=== PATIENT | male | born 1945 | race Caucasian/White ===

== ENCOUNTER 2017-02-17 19:53 | Inpatient (IN) | payer OTHER ==
[~2017-02-17] VITALS: Ht 185.4 cm; Wt 80.5 kg
[2017-02-17] MEDS ORDERED: LORTAB 7.5-3251 EACH PO (22:15)
[2017-02-17] MEDS ORDERED: AMLODIPINE BESY10 MG PO (22:16)
[2017-02-17] MEDS ORDERED: CLEOCIN HCL300 MG PO (22:16)
[2017-02-17] MEDS ORDERED: FUROSEMIDE20 MG PO (22:16)
[2017-02-17] MEDS ORDERED: FLOMAX 0.4 MG0.4 MG PO (22:17)
[2017-02-17] MEDS ORDERED: ZESTRIL 40 MG T40 MG PO (22:17)
[2017-02-17] MEDS ORDERED: TENORMIN 50 MG50 MG PO (22:18)
[2017-02-17] MEDS ORDERED: HUMALOG100 UNIT/1 SQ (22:19)
[2017-02-17] MEDS ORDERED: NEURONTIN 300300 MG PO (22:19)
[2017-02-17] MEDS ORDERED: LIPITOR TAB 2020 MG PO (22:19)
[2017-02-17] MEDS ORDERED: LANTUS100 UNIT/1 SQ (22:20)
[2017-02-17] MEDS ORDERED: NOVOLOG 10100 UNITS/ SQ (22:23)
[2017-02-18 05:58] LABS: HEMOGLOBIN 10.9 gm/dl (14.0-17.5); RED BLOOD COUNT 3.74 M/UL (4.20-5.50); WHITE BLOOD COUNT 8.9 K/UL (4.5-11.0)
[2017-02-18 06:28] LABS: BUN/CREATININE RATIO 18 (0-10)
[2017-02-19 05:02] LABS: HEMOGLOBIN 10.2 gm/dl (14.0-17.5); RED BLOOD COUNT 3.54 M/UL (4.20-5.50); WHITE BLOOD COUNT 9.2 K/UL (4.5-11.0)
[2017-02-19 05:20] LABS: BUN/CREATININE RATIO 26 (0-10)
[2017-02-20 04:46] LABS: HEMOGLOBIN 10.7 gm/dl (14.0-17.5); RED BLOOD COUNT 3.64 M/UL (4.20-5.50); WHITE BLOOD COUNT 10.5 K/UL (4.5-11.0)
[2017-02-21 06:12] LABS: HEMOGLOBIN 10.7 gm/dl (14.0-17.5); RED BLOOD COUNT 3.7 M/UL (4.20-5.50); WHITE BLOOD COUNT 8.6 K/UL (4.5-11.0)
[2017-02-21 06:49] LABS: BUN/CREATININE RATIO 16 (0-10)
[2017-02-22 19:07] LABS: HEMOGLOBIN 11.3 gm/dl (14.0-17.5); RED BLOOD COUNT 3.87 M/UL (4.20-5.50); WHITE BLOOD COUNT 9.7 K/UL (4.5-11.0)
[2017-02-22 19:29] LABS: BUN/CREATININE RATIO 16 (0-10)
[2017-02-22] MEDS ORDERED: BACTROBAN OINT22 GM TOP (22:18)
[2017-02-23 04:13] LABS: HEMOGLOBIN 10.9 gm/dl (14.0-17.5); RED BLOOD COUNT 3.64 M/UL (4.20-5.50); WHITE BLOOD COUNT 7.4 K/UL (4.5-11.0)
[2017-02-23 04:28] LABS: BUN/CREATININE RATIO 20 (0-10)
[2017-03-01 04:51] LABS: HEMOGLOBIN 10.2 gm/dl (14.0-17.5); RED BLOOD COUNT 3.59 M/UL (4.20-5.50); WHITE BLOOD COUNT 9.1 K/UL (4.5-11.0)
[2017-03-01 05:32] LABS: BUN/CREATININE RATIO 14 (0-10)
[2017-03-01] MEDS ORDERED: TEFLARO600 MG IV (18:30)
[2017-03-01] MEDS ORDERED: VITAMIN C 500500 MG PO (18:34)
[2017-03-01] MEDS ORDERED: DAKIN'S SOLUTI500 ML EXT (18:34)
[2017-03-01] MEDS ORDERED: PLAVIX 75 MG TA75 MG PO (18:35)
[2017-03-30] MEDS ORDERED: LABETALOL HCL200 MG PO (15:55)
[2017-03-30] MEDS ORDERED: NORVASC 5 MG TAB5 MG PO (15:56)
[2017-03-30] MEDS ORDERED: ASPIRIN EC81 MG PO (15:56)
[2017-03-30] MEDS ORDERED: LEVAQUIN I750 MG/150 IV (15:59)
[2017-03-30] MEDS ORDERED: VANCOCIN 125MG/2.5ML IV (15:59)
[2017-03-30] MEDS ORDERED: VITAMIN C 500500 MG PO (16:00)
[2017-03-30] MEDS ORDERED: NORCO 10-325 T1 EACH PO (16:01)
== END 2017-03-01 19:15 | disposition home or self-care (01) | DRG 271 ==
LOC: MED SURG 4 21:21
PROVIDERS: Internal Medicine; Internal Medicine Cardiovascular Disease; Physician Assistant; Podiatrist Foot & Ankle Surgery; ADMIT Internal Medicine
PROC: 0JBR0ZZ Excision of Left Foot Subcutaneous Tissue and Fascia, Open Approach (ICD-10-PCS; principal; 2017-02-19 08:00)
PROC: 0Y6S0Z0 Detachment at Left 2nd Toe, Complete, Open Approach (ICD-10-PCS; principal; 2017-02-19 08:00)
PROC: B41DYZZ Fluoroscopy of Aorta and Bilateral Lower Extremity Arteries using Other Contrast (ICD-10-PCS; 2017-02-22)
PROC: 04CN3ZZ Extirpation of Matter from Left Popliteal Artery, Percutaneous Approach (ICD-10-PCS; 2017-02-22)
DX: E11.52 Type 2 diabetes mellitus with diabetic peripheral angiopathy with gangrene (principal); M86.172 Other acute osteomyelitis, left ankle and foot; E87.1 Hypo-osmolality and hyponatremia; E11.69 Type 2 diabetes mellitus with other specified complication; I10 Essential (primary) hypertension; I25.10 Atherosclerotic heart disease of native coronary artery without angina pectoris; E11.42 Type 2 diabetes mellitus with diabetic polyneuropathy; E11.621 Type 2 diabetes mellitus with foot ulcer; L97.523 Non-pressure chronic ulcer of other part of left foot with necrosis of muscle; M10.9 Gout, unspecified; R04.0 Epistaxis; Z79.4 Long term (current) use of insulin; Z79.82 Long term (current) use of aspirin; Z95.1 Presence of aortocoronary bypass graft; Z88.0 Allergy status to penicillin; Z88.2 Allergy status to sulfonamides; Z87.891 Personal history of nicotine dependence
CPT/HCPCS: 36245; 36415; 73630; 75630; 80048; 80202; 82962; 83036; 85027; 85347; 85610; 85730; 86140; 87040; 87070; 87077; 87186; 87205; 93005; 93925; C1714; C1769; C2623; J1335; J1644; J1650; J2185; J2250; J2270; J2795; J3010; J3370; J7030; J7050; J7070; J7120; Q9965

== ENCOUNTER → 2017-03-14 | Outpatient (CLI) | payer OTHER ==
[~2017-03-14] MED LIST: AMLODIPINE BESY10 MG PO; ASPIRIN EC81 MG PO; BACTROBAN OINT22 GM TOP; CLEOCIN HCL300 MG PO; DAKIN'S SOLUTI500 ML EXT; FLOMAX 0.4 MG0.4 MG PO; FUROSEMIDE20 MG PO; HUMALOG100 UNIT/1 SQ; LABETALOL HCL200 MG PO; LANTUS100 UNIT/1 SQ; LEVAQUIN I750 MG/150 IV; LIPITOR TAB 2020 MG PO; LORTAB 7.5-3251 EACH PO; NEURONTIN 300300 MG PO; NORCO 10-325 T1 EACH PO; NORVASC 5 MG TAB5 MG PO; NOVOLOG 10100 UNITS/ SQ; PLAVIX 75 MG TA75 MG PO; TEFLARO600 MG IV; TENORMIN 50 MG50 MG PO; VANCOCIN 125MG/2.5ML IV; VITAMIN C 500500 MG PO; ZESTRIL 40 MG T40 MG PO
== END ==
LOC: OPSV 15:09
DX: M86.8X7 Other osteomyelitis, ankle and foot (principal)
CPT/HCPCS: G0463

== ENCOUNTER 2021-07-06 13:13 | Inpatient (IN) | payer OTHER ==
[~2021-07-06] VITALS: Ht 185.4 cm; Wt 71.2 kg
[~2021-07-06 13:13] MED LIST changes: +ATIVAN1 MG PO; +CIPRO500 MG PO; +CLINDAMYCIN HC300 MG PO; +FLONASE ALLER15.8 ML; +HYDROCHLOROTHIA25 MG PO; +IBUPROFEN800 MG PO; -NEURONTIN 300300 MG PO; +PEPCID20 MG PO; +VENTOLIN HFA 66.7 GM INH
[2021-07-06 14:14] LABS: HEMOGLOBIN 10.3 gm/dl (14.0-17.5); RED BLOOD COUNT 3.32 M/UL (4.20-5.50); WHITE BLOOD COUNT 20.5 K/UL (4.5-11.0)
[2021-07-07 01:48] LABS: HEMOGLOBIN 9.1 gm/dl (14.0-17.5)
[2021-07-07 01:49] LABS: RED BLOOD COUNT 2.92 M/UL (4.20-5.50); WHITE BLOOD COUNT 13.7 K/UL (4.5-11.0)
[2021-07-07] MEDS ORDERED: CARVEDILOL6.25 MG PO (11:28)
[2021-07-07] MEDS ORDERED: KLONOPIN TAB 00.5 MG PO (11:28)
[2021-07-07] MEDS ORDERED: FUROSEMIDE80 MG PO (11:29)
[2021-07-07] MEDS ORDERED: KLOR-CON M2020 MEQ PO (11:29)
[2021-07-07] MEDS ORDERED: COZAAR 25MG TAB25 MG PO (11:30)
[2021-07-07] MEDS ORDERED: MELOXICAM7.5 MG PO (11:30)
[2021-07-07] MEDS ORDERED: HYDROCODON-ACE1 EAC6 PO (15:31)
[2021-07-07] MEDS ORDERED: NEURONTIN300 MG PO (22:19)
--- NOTE | 2021-07-08 01:37 | NUR ---
TELEMETRY NOTIFIED THIS RN PT HAD 3 BTS OF NON SUSTAINED. NOTIFIED PROVIDER. PROVIDER ORDERED STAT CMP, MG. LAB NOTIFIED OF STAT DRAWL. PT RESTING NONLABORED BREATHING WITH EYES CLOSED. PKRN
[2021-07-08 01:56] LABS: HEMOGLOBIN 9.5 gm/dl (14.0-17.5); RED BLOOD COUNT 3.09 M/UL (4.20-5.50)
[2021-07-08 01:59] LABS: WHITE BLOOD COUNT 8.9 K/UL (4.5-11.0)
[2021-07-09 07:11] LABS: HEMOGLOBIN 8.3 gm/dl (14.0-17.5); RED BLOOD COUNT 2.84 M/UL (4.20-5.50)
[2021-07-09 07:12] LABS: WHITE BLOOD COUNT 6.5 K/UL (4.5-11.0)
[2021-07-10 03:09] LABS: HEMOGLOBIN 8.8 gm/dl (14.0-17.5); RED BLOOD COUNT 2.93 M/UL (4.20-5.50); WHITE BLOOD COUNT 6.5 K/UL (4.5-11.0)
[2021-07-10] MEDS ORDERED: CARVEDILOL12.5 MG PO (10:57)
[2021-07-10] MEDS ORDERED: THERAGRAN M TAB1 EA PO (10:57)
[2021-07-10] MEDS ORDERED: FERROUS GLUCON324 M1 PO (10:57)
[2021-07-10] MEDS ORDERED: AUGMENTIN 500-500 MG PO (11:02)
== END 2021-07-10 12:06 | disposition home or self-care (01) | DRG 871 ==
LOC: ER1 13:13 → CDU 17:09 → MED SURG 4 21:17
PROVIDERS: Family Medicine; Internal Medicine; ADMIT Internal Medicine Infectious Disease
DX: A41.9 Sepsis, unspecified organism (principal); G93.41 Metabolic encephalopathy; L03.116 Cellulitis of left lower limb; N17.9 Acute kidney failure, unspecified; I50.22 Chronic systolic (congestive) heart failure; I13.0 Hypertensive heart and chronic kidney disease with heart failure and stage 1 through stage 4 chronic kidney disease, or unspecified chronic kidney disease; Z20.822 Contact with and (suspected) exposure to COVID-19; M19.90 Unspecified osteoarthritis, unspecified site; N18.30 Chronic kidney disease, stage 3 unspecified; E11.22 Type 2 diabetes mellitus with diabetic chronic kidney disease; N40.0 Benign prostatic hyperplasia without lower urinary tract symptoms; E11.40 Type 2 diabetes mellitus with diabetic neuropathy, unspecified; F17.210 Nicotine dependence, cigarettes, uncomplicated; D63.1 Anemia in chronic kidney disease; Z89.432 Acquired absence of left foot; Z95.1 Presence of aortocoronary bypass graft; Z85.038 Personal history of other malignant neoplasm of large intestine; Z82.49 Family history of ischemic heart disease and other diseases of the circulatory system; Z88.0 Allergy status to penicillin; Z88.2 Allergy status to sulfonamides
CPT/HCPCS: 36415; 36600; 51701; 71045; 73700; 80048; 80053; 81001; 82550; 82553; 82607; 82728; 82746; 82803; 82962; 83036; 83540; 83550; 83605; 83735; 84100; 84132; 84443; 84484; 85025; 85610; 86140; 87040; 87081; 87086; 93005; 93925; 93971; 94640; 94664; 94760; 96374; 97110-GP-CQ; 97116-GP-CQ; 97162; 97166; 97530; 97530-GP-CQ; 99285; J0696; J1650; J1756; J2020; J2185; U0002